=== PATIENT | female | born 1970 | race Caucasian/White ===

== ENCOUNTER 2020-11-29 09:17 | Day surgery (SDC) | payer BC ==
[2020-11-29] MEDS ORDERED: Bupivacaine 0.5%/EPINEPHrine 1:200,000 50 ML MDV ONE (09:27)
[2020-11-29] MEDS ORDERED: Lidocaine 1%/Sod Bicarbonate in NS 8.4% 1 ML Syringe IDERM PRN (10:00)
[2020-11-29] MEDS ORDERED: Lactated Ringers 1,000 ML IV SCH (10:00)
[2020-11-29] MEDS ORDERED: Midazolam 1 MG/ML 2 ML SDV ONE (10:08)
[2020-11-29] MEDS ORDERED: fentaNYL 250 MCG/5 ML SDV ONE (10:08)
[2020-11-29] MEDS ORDERED: Propofol 200 MG/20 ML SDV ONE (10:08)
[2020-11-29] MEDS ORDERED: Rocuronium 50 MG/5 ML Vial ONE (10:08)
[2020-11-29] MEDS ORDERED: Ondansetron 4 MG/2 ML SDV ONE (10:08)
[2020-11-29] MEDS ORDERED: Lidocaine 1% 4 ML ONE (10:09)
[2020-11-29] MEDS ORDERED: Dexamethasone 4 MG/ML 5 ML MDV ONE (11:45)
[2020-11-29] MEDS ORDERED: HYDROmorphone 0.5 MG/0.5 ML Syringe ONE (11:56)
[2020-11-29] MEDS ORDERED: fentaNYL 100 MCG/2 ML SDV ONE (11:57)
[2020-11-29] MEDS ORDERED: Lactated Ringers 1,000 ML ONE (12:03)
[2020-11-29] MEDS ORDERED: Sodium Chloride 0.9% 10 ML Syringe FLUSH PRN (12:11)
--- NOTE | 2020-11-29 12:24 | PCM.PREANE ---
Preanesthetic Assessment - Procedure Proposed Procedure: laparoscopic cholecystectomy - Anesthesia/Transfusion/Family Hx Anesthesia History: Prior Anesthesia Without Reaction Other Type of Anesthesia Reaction Comment: jeromy Family History of Anesthesia Reaction: No Transfusion History: No Prior Transfusion(s) Intubation History: Unknown - Review of Systems General: Malaise Pulmonary: No Symptoms Cardiovascular: Dyspnea on Exertion Gastrointestinal: Abdominal Pain (RUQ) Neurological: No Symptoms Other: Reports: Diabetes (DM 1 insuline pump, gluco check 149), Liver Problems ("fatty liver"), Anxiety - Physical Assessment NPO Status Date: 11/28/20 NPO Status Time: 00:00 Vital Signs: Last Vital Signs Temp 37.3 C 11/29/20 10:03 Pulse 100 11/29/20 10:33 Resp 18 11/29/20 10:33 BP 136/77 11/29/20 10:33 Pulse Ox 98 11/29/20 10:33 Weight: 108.7 kg ASA Class: 3 Mental Status: Alert & Oriented x3 Airway Class: Mallampati = 3 Dentition: Reports: Bruning(s) Thyro-Mental Finger Breadths: 2 Mouth Opening Finger Breadths: 1 ROM/Head Extension: Limited/Partial Lungs: Clear to Auscultation, Normal Respiratory Effort Cardiovascular: Regular Rate, Regular Rhythm - Lab Values: Laboratory Last Values Urine HCG, Qual Negative (NEGATIVE) 11/29/20 10:05 - Allergies Allergies/Adverse Reactions: Allergies Allergy/AdvReac Type Severity Reaction Status Date / Time amoxicillin Allergy Other Verified 11/29/20 12:15 erythromycin base Allergy Other Verified 11/29/20 12:15 Iodinated Contrast Media Allergy Other Verified 11/29/20 12:15 [Iodinated Contrast- Oral and IV Dye] levofloxacin [From Levaquin] Allergy Other Verified 11/29/20 12:15 metronidazole [From Flagyl] Allergy Cannot Verified 11/29/20 12:15 Remember MRI CONTRAST Allergy Other Uncoded 11/29/20 12:15 - Anesthesia Plan Pre-Op Medication Ordered: None - Acknowledgements Anesthesia Type Planned: General Anesthesia Pt an Appropriate Candidate for the Planned Anesthesia: Yes Alternatives and Risks of Anesthesia Discussed w Pt/Guardian: Yes Pt/Guardian Understands and Agrees with Anesthesia Plan: Yes PreAnesthesia Questionnaire HEENT History: Reports: Other (See Below) Other HEENT History: diplobia, dry eyes Cardiovascular History: Reports: Other (See Below) Other Cardiovascular History: edema, palpitations with anxiety/nervousness Respiratory History: Reports: Other (See Below) Gastrointestinal History: Reports: Cholelithiasis, Colon Polyp, Fatty Liver, Jaundice, Other (See Below) Other Gastrointestinal History: hematochezia, polyps, abdominal pain, diarrhea Genitourinary History: Reports: Pyelonephritis, Renal Calculus 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 Neurological History: Reports: MS, Other (See Below) Other Neuro History: Patient reports visions changes in the past asscociated with MS. Denies complaints at this time. Psychiatric History: Reports: Anxiety, Panic Attack, Other (See Below) Other Psychiatric History: fatigue Endocrine/Metabolic History: Reports: Diabetes, Type I, Vitamin D Deficiency Other Endocrine/Metabolic History: Chronic low Fe levels requiring Venofer and Injectofer Infusions Hematologic History: Reports: Anemia, Iron Deficiency Oncologic (Cancer) History: Reports: None Dermatologic History: Reports: None - Past Surgical History Head Surgeries/Procedures: Reports: None HEENT Surgical History: Reports: Tonsillectomy Cardiovascular Surgical History: Reports: None GI Surgical History: Reports: Colonoscopy, EGD Female Surgical History: Reports: Section Male Surgical History: Reports: None Endocrine Surgical History: Reports: None Neurological Surgical History: Reports: None Musculoskeletal Surgical History: Reports: Other (See Below) Other Musculoskeletal Surgeries/Procedures:: bilateral wrist surgery Oncologic Surgical History: Reports: None - SUBSTANCE USE Tobacco Use Status *Q: Former Tobacco User Tobacco Use Within Last Twelve Months: No Second Hand Smoke Exposure: No Recreational Drug Use History: No - HOME MEDS Home Medications: Home Meds Insulin Lispro [HumaLOG] 100 units SQ ASDIRECTED PRN 02/25/18 [History] LORazepam [Ativan] 1 mg PO TID PRN 02/25/18 [History] metFORMIN HCl [Metformin ER Osmotic] 1,000 mg PO BID 02/25/18 [History] Ibuprofen 200 mg PO TID PRN 12/02/18 [History] Simvastatin 20 mg PO DAILY 12/02/18 [History] Acetaminophen/HYDROcodone [Anson 325-5 MG] 1 tab PO Q4H PRN 14 Days #30 tablet 12/03/18 [Rx] Ibuprofen 600 mg PO Q6HR PRN 20 Days #60 tablet 12/03/18 [Rx] Docusate Sodium [Colace] 100 mg PO BID PRN 11/29/20 [History] Ferric Carboxymaltose [Injectafer] 11/29/20 [History] - CURRENT (IN HOUSE) MEDS Current Meds: Current Medications Discontinued Medications Bupivacaine HCl/Epinephrine Bitart (Bupivacaine 0.5%/Epinephrine 1:200,000 50 Ml Mdv) Confirm Administered Dose 50 ml .ROUTE .STK-MED ONE Stop: 11/29/20 09:28 Dexamethasone (Dexamethasone 4 Mg/Ml 5 Ml Mdv) Confirm Administered Dose 20 mg .ROUTE .STK-MED ONE Stop: 11/29/20 11:46 Fentanyl (Fentanyl 250 Mcg/5 Ml Sdv) Confirm Administered Dose 250 mcg [facility] Stop: 11/29/20 10:09 Fentanyl (Fentanyl 100 Mcg/2 Ml Sdv) Confirm Administered Dose 100 mcg .[facility] Stop: 11/29/20 11:58 Hydromorphone HCl (Hydromorphone 0.5 Mg/0.5 Ml Syringe) Confirm Administered Dose 0.5 mg .[facility] Stop: 11/29/20 11:57 Lidocaine HCl (Xylocaine-Mpf 1%) Confirm Administered Dose 4 mls @ as directed .[facility] Stop: 11/29/20 10:10 Lactated Ringer's (Ringers, Lactated) Confirm Administered Dose 1,000 mls @ as directed .[facility] Stop: 11/29/20 12:04 Midazolam HCl (Midazolam 1 Mg/Ml 2 Ml Sdv) Confirm Administered Dose 2 mg .ROUTE .STK-MED ONE Stop: 11/29/20 10:09 Ondansetron HCl (Ondansetron 4 Mg/2 Ml Sdv) Confirm Administered Dose 4 mg .ROUTE .STK-MED ONE Stop: 11/29/20 10:09 Propofol (Propofol 200 Mg/20 Ml Sdv) Confirm Administered Dose 200 mg .[facility] Stop: 11/29/20 10:[address] [place] (Rocuronium 50 Mg/5 Ml Vial) Confirm Administered Dose 50 mg .ROUTE .[facility]-MED ONE Stop: 11/29/20 10:09
--- NOTE | 2020-11-29 13:23 | PCM.POSTAN ---
POST ANESTHESIA ASSESSMENT - MENTAL STATUS Mental Status: Alert, Oriented - VITAL SIGNS Vital Signs: Last Vital Signs Temp 36.7 C 11/29/20 13:15 Pulse 105 H 11/29/20 13:15 Resp 17 11/29/20 13:15 BP 140/79 11/29/20 13:15 Pulse Ox 97 11/29/20 13:15 - RESPIRATORY Respiratory Status: Respiratory Rate WNL, Airway Patent, O2 Saturation Stable, Supplemental Oxygen - CARDIOVASCULAR CV Status: Pulse Rate WNL, Blood Pressure Stable - GASTROINTESTINAL GI Status: No Symptoms - PAIN Pain Score: 0 - POST OP HYDRATION Hydration Status: Adequate & Stable - OBSERVATIONS Free Text/Narrative:: no anesthesia complications noted
[2020-11-29] MEDS ORDERED: ceFAZolin 1 GM Vial ONE (13:31)
[2020-11-29] MEDS: fentaNYL 100 MCG/2 ML SDV IVPUSH PRN ×2 (13:33→13:51)
--- NOTE | 2020-11-29 13:43 | PCM.PRNOTE ---
- Free Text/Narrative Note: Date: 11/29/2020 Operation: Laparoscopic cholecystectomy Indication: postprandial right upper quadrant pain with nausea and vomiting, suspected acalculous cholecystitis Surgeon: Jose Charles MD Findings: hepatomegaly with mild chronic inflammatory changes to gallbladder. Critical view of safety obtained. Detailed Report: Patient was taken to the operating room and placed in supine position. Timeout was performed and general endotracheal anesthesia was initiated. Intubation was challenging, with first attempt with glide scope being unsuccessful. For less than a minute, the patient had profound oxygen desaturation. This improved with mask ventilation. On second attempt, intubation was successful. The abdomen was prepped and draped in usual sterile fashion. A Veress needle was placed at the left upper quadrant in order to establish pneumoperitoneum. Air was aspirated at the umbilicus with a needle and syringe. Local anesthetic was injected prior to placement of a 5 mm bladed trocar just superior to the umbilicus. A 5 mm laparoscope was inserted into the abdomen and contents were inspected. There was no injury from Veress needle placement and this was removed. Additional ports were placed under laparoscopic visualization. 2 5 mm ports in the right upper quadrant and 112 mm port at the subxiphoid area. Optimal retraction was difficult due to patient habitus and enlarged liver. An additional 5 mm port was placed at the right lower quadrant. The fundus of the gallbladder was grasped and retracted cephalad. The infundibulum was grasped and retracted laterally. Dissection commenced with hook monopolar energy. The visceral peritoneum of the gallbladder was taken off at the level of the infundibulum. Lateral attachments to the liver were divided. Careful dissection proceeded using the suction it consulting director, [place] graspers and hook monopolar energy in order to obtain a critical view of safety. 2 and only 2 structures were seen going to the gallbladder consistent with the cystic duct and artery. Artery size purple clips were placed on the cystic duct prior to transection, with 2 on the stay side. A smaller green clip was placed on the stay side of the artery. The duct was transected with laparoscopic scissors and the artery was divided distal to the clip using hook monopolar energy. The gallbladder was then dissected off the liver with hook monopolar energy. There was no spillage of bile. The specimen was placed in Endo Catch and removed through the subxiphoid port. The dissection field appeared clean and dry. The larger port site was closed at the level of fascia with 0 Vicryl using laparoscopic suture passer. Ports were removed under laparoscopic visualization and hemostasis was satisfactory. Pneumoperitoneum was released. All skin incisions were closed with running subcuticular 4-0 Vicryl and dressed with Dermabond. A total of 37 cc 0.5% Marcaine with epinephrine was used for local anesthetic throughout the case. The patient tolerated the procedure well.
[2020-11-29] MEDS ORDERED: oxyCODONE 5 MG Tab PO ONE ×3 (14:05→21:00)
[2020-11-29] MEDS ORDERED: fentaNYL 100 MCG/2 ML SDV IVPUSH PRN (14:07)
--- NOTE | 2020-11-29 14:44 | PCM48HPAN ---
Post Anesthesia Note - EVALUATION WITHIN 48HRS OF ANESTHETIC Vital Signs in Normal Range: Yes Patient Participated in Evaluation: Yes Respiratory Function Stable: Yes Airway Patent: Yes Cardiovascular Function Stable: Yes Hydration Status Stable: Yes Pain Control Satisfactory: Yes (Still has some pain- will go to floor) Nausea and Vomiting Control Satisfactory: Yes (denies ) Mental Status Recovered: Yes Vital Signs: Last Vital Signs Temp 11/29/20 14:25 Pulse 97 11/29/20 14:38 Resp 21 H 11/29/20 14:38 BP 134/80 11/29/20 14:38 Pulse Ox 94 L 11/29/20 14:38
[2020-11-29] MEDS ORDERED: Ketorolac 30 MG/ML SDV IVPUSH ONE (16:15)
[2020-11-29] MEDS ORDERED: Acetaminophen 325 MG Tab PO ONE (17:00)
[2020-11-29] MEDS ORDERED: Gabapentin 300 MG Cap PO ONE (18:12)
[2020-11-29] MEDS ORDERED: Ketorolac 15 MG/ML SDV IVPUSH ONE (19:22)
== END 2020-11-29 21:15 | disposition home or self-care (01) ==
LOC: JD.SDS 09:17 → JD.MS 14:47 → JD.SDS 21:15
PROVIDERS: ATTEND Surgery
DX: K81.1 Chronic cholecystitis (principal); E10.9 Type 1 diabetes mellitus without complications; R16.0 Hepatomegaly, not elsewhere classified; Z88.0 Allergy status to penicillin; Z91.041 Radiographic dye allergy status; Z87.891 Personal history of nicotine dependence; Z79.4 Long term (current) use of insulin; Z79.899 Other long term (current) drug therapy
CPT/HCPCS: 47562; 81025; 94761; A9270; J0690; J1100; J1170; J1885; J2250; J2405; J2704; J3010; J3490; J7120; 00790